=== PATIENT | female | born 1945 | race Caucasian/White ===

== ENCOUNTER → 2017-10-10 | Day surgery (SDC) | payer MEDICARE ==
[~2017-10-10] VITALS: Ht 160 cm; Wt 62.3 kg
[~2017-10-10] MED LIST: ACETAMINOPHEN/HYDROcodone 325 MG/7.5 MG TAB PO PRN; ARTH650T6 PO; ASCO500T PO; ATOR40TA16 PO; BETAMETHASONE SOD PHOS/ACETATE SUSP 30 MG/5 ML VIAL ONE; BIOT1000 PO; BUPIVACAINE/EPINEPHRINE 0.25% 50 ML VIAL ONE; CETI10CH CHEW; CHLORHEXIDINE GLUCONATE 2 % 1 PACK (2 CLOTHS) TOPICAL PRN; CHLORHEXIDINE GLUCONATE 4% SOLN 120 ML BTL TOPICAL SCH; CHOL1CAP8 PO; COUM5TAB PO; DEXAMETHASONE SOD PHOS 4 MG/ML VIAL IV ONE; DO NOT ADM ANY ANTICOAGULANT DRUGS PRN; GELFOAM SIZE 100 ONE; GENTAMICIN SULFATE 80 MG/2 ML VIAL ONE; GLYCOPYRROLATE 1 MG/5 ML SYRINGE IV PUSH ONE; HYDR-3288 PO; KETOROLAC TROMETHAMINE 30 MG/ML (IVP) VIAL IV PUSH ONE; LACTATED RINGER'S 1000 ML INJ 1,000 ML IV SCH; LACTATED RINGER'S 1000 ML IV PRN; LEVE500 PO; LIDOCAINE HCL 1% PF 5 ML SYRINGE OTHER ONE; METO25TA3 PO; METO50TA PO; METOPROLOL TARTRATE 25 MG TAB PO PRN; MIDAZOLAM HCL 2 MG/2 ML VIAL ONE; MORPHINE SULFATE 2 MG/ML SYRINGE IV PUSH PRN; NEOSTIGMINE 5 MG/5 ML SYRINGE IV PUSH ONE; NEPHTAB3 PO; ONDANSETRON HCL 4 MG/2 ML VIAL IV ONE; PHENYLEPH/NS 1000 MCG/10 ML SYR IV ONE; POVIDONE IODINE 5% (ANTISEPSIS KIT) 4 APPLICATIONS EACH NARE PRN; PROPOFOL 200 MG/20 ML AMP IV ONE; ROCURONIUM INJ 50 MG/5 ML SYRINGE IV PUSH ONE; SODIUM CHLORID 0.9% 500 ML IV PRN; TYLETAB34 PO; VENL75TA PO; ceFAZolin 2 GM PREMIX 50 ML IV SCH; ceFAZolin INJ 1,000 MG VIAL ONE; ePHEDrine/NS 25 MG/5 ML SYRINGE IV ONE
[2017-10-10 07:15] LABS: INTERNATIONAL NORMALIZED RATIO 1.1 RATIO; PROTHROMBIN TIME - PATIENT 10.9 SEC (9.8-11.6)
--- NOTE | 2017-10-10 09:11 | PD.OP ---
cc: Anders Gordillo. Operative Report Date of Surgery: Oct 10, 2017 Preoperative Diagnosis: Lumbar spinal stenosis, L4-5. Bilateral lumbosacral radiculopathy. Bulging disc versus herniated nucleus pulposus, L4-5 central Postoperative Diagnosis: Same Procedure: Bilateral lumbar laminectomy from the left L4, L5 with bilateral lateral recess decompression. Use of dilation port and microscope Anesthesia: General Surgeon: Anders Gordillo Sign Shop Supervisor(s): BIJU Lao Operation and Findings: EBL: 25 cc INDICATION: This patient is a 72-year-old female with significant back hip and leg pain with weakness. Investigative studies shows evidence of high-grade spinal stenosis at L4-5. There are some findings consistent with a central disc herniation versus bulging of the disc at that level. This patient presents for surgical treatment. NOTE: Ita Lao PA-C was present for the entire surgical procedure as my first aid teacher. In my medical opinion her skill and care was necessary for the proper management of this patient. PROCEDURE: The patient was brought to the operating room and anesthetized in the supine position. The patient was rolled to a prone position on a Osmar frame on a Marv table. All pressure points were protected in the back was scrubbed with alcohol followed by Hibiclens followed by ChloraPrep and draped sterilely. A timeout was done and antibiotics were given. AP and lateral radiographic images were used to identify the proper levels and perform skin markings. We started from the left side at the L4-5 level. A paramedian incision was made and an off-midline fascial incision was made. A dilating system was placed down to the interlaminar space and held provisionally to the side of the table. The microscope was brought into the field. A high-speed bur under the microscope was used to perform a bilateral laminectomy from that side. A lateral recess decompression bilaterally was accomplished using straight and angled Kerrison punches. A partial medial facetectomy was accomplished. The crossing and exiting nerve roots were completely decompressed. We explored the disc space. There was evidence of bulging of the disc centrally. There was no significant nerve root compromise on either lateral recess. We chose not to do a disc excision. The patient has a minimal grade 1 spondylolisthesis. This may have added to further instability at that level. The wound was irrigated copiously. A small piece of Gelfoam with Celestone was placed into the epidural space. Hemostasis was controlled. The deep fascia was approximated with interrupted 0 Vicryl suture subcutaneous suture with 2-0 Vicryl suture and skin with running intradermal 3-0 Vicryl followed by Dermabond. A field block with local anesthesia was utilized. A sterile dressing was applied. The sponge count and needle counts and instrument counts were all correct. The patient tolerated the procedure well as taken to the recovery room in satisfactory condition. FINDINGS: There is evidence of a high-grade spinal stenosis. On the left side the left L5 nerve root was severely trapped under the edge of the joint. This was completely stuck down just below the disc space. The decompression on both sides was felt to be very satisfactory Anders Gordillo MD Oct 10, 2017 09:11
[2017-10-10 11:38] VITALS: BP 113/58; PULSE 93; RESP 18; TEMP 97.8; O2SAT 94
--- NOTE | 2017-10-10 12:46 | RADRPT ---
EXAM DATE/TIME: 10/10/2017 08:16 [facility] COMPARISON: No previous studies available for comparison. INDICATIONS : L4-5 Laminectomy. MEDICAL HISTORY : Hypertension. Spinal stenosis. SURGICAL HISTORY : Hysterectomy. ENCOUNTER: Initial ACUITY: 1 day PAIN SCORE: Non-responsive. LOCATION: Lumbar spine. FINDINGS: Single lateral spot fluoroscopic image obtained in the operating room during a procedure demonstrates instrument overlying the posterior elements at the L4-L5 level. CONCLUSION: Spot fluoroscopic image, as above. Kelvin Krueger MD on October 10, 2017 at 12:44 Board Certified Radiologist. This report was verified electronically.
== END | disposition home or self-care (01) ==
LOC: HSDC 05:29
PROVIDERS: ATTEND Orthopaedic Surgery Orthopaedic Surgery of the Spine
DX: M48.061 Spinal stenosis, lumbar region without neurogenic claudication (principal); M54.17 Radiculopathy, lumbosacral region; I10 Essential (primary) hypertension; Z79.01 Long term (current) use of anticoagulants
CPT/HCPCS: 00630; 63047; 72020; 76000; 85610; J0690; J1100; J1580; J1885; J2250; J2370; J2405; J2710; J3010; J7120; J0702